=== PATIENT | female | born 1995 | race Caucasian/White ===

== ENCOUNTER → 2016-07-06 | Outpatient (REF) | payer BC, MEDICAID ==
[~2016-07-06] MED LIST: AC325T PO; CLIN-78 PO; CLIN-79 PO; FERR325T36 PO; NAPR250T34 PO; NORE0.354 PO; ONDA-50 PO; ONDN4T PO; OXYC1TAB87 PO; PREN1TAB79 PO
== END ==
LOC: LAB 16:24
PROVIDERS: ATTEND Obstetrics & Gynecology
DX: Z33.1 Pregnant state, incidental (principal)
CPT/HCPCS: 87653

== ENCOUNTER 2016-07-21 03:26 | Inpatient (IN) | payer BC, MEDICAID ==
[2016-07-21] VITALS (22 sets, daily range): BP systolic 101–139; BP diastolic 52–73
[~2016-07-21] VITALS: Ht 162.6 cm; Wt 116.0 kg
[2016-07-21] MEDS ORDERED: CALCIUM CARBONATE CHEWABLE 300 MG (TUMS) TABLET PO PRN ×2 (05:45→06:00)
[2016-07-21] MEDS ORDERED: SODIUM CHLORIDE FLUSH 10 ML SYR IV PRN ×2 (05:45→06:00)
[2016-07-21] MEDS ORDERED: SODIUM CHLORIDE FLUSH 3 ML SYR IV PRN ×2 (05:45→06:00)
--- OUTSIDE RECORDS SUMMARY | 2016-07-21 05:54 | XMS REPORT | Continuity of Care Document ---
Author Author [facility] Address Unknown Phone Unavailable Care Team Providers Care Survey Questionnaire Designer Name Role Phone GIRMA FARIAS MD PCP [phone] Insurance Providers Payer Name Policy Number Subscriber Name Relationship [facility] [id number] Gregory Larios Jr 19 Father [facility] [id number] Ronak Brown 18 Self / Same As Patient Advance Directives Directive Response Recorded Date/Time Advanced Directives No 04/28/15 10:42pm Chief Complaint and Reason for Visit Chief Complaint VAGINAL DELIVERY Reason for Visit Bronchitis Elective induction of labor planned Non- nausea and vomiting Obstetric vaginal laceration, delivered, current hospitalization hemorrhage, delivered, current hospitalization Vaginal delivery Problems Active Problems Medical Problem Onset Date Status 39 weeks gestation of Unknown Acute Anemia due to acute blood loss Unknown Acute Bronchitis Unknown Acute Elective induction of labor planned Unknown Acute Non- nausea and vomiting Unknown Acute Obstetric vaginal laceration, delivered, current hospitalization Unknown Acute hemorrhage, delivered, current hospitalization Unknown Acute Vaginal delivery Unknown Acute Medications Current Home Medications Medication Dose Units Route Directions Days/Qty Instructions Start Date Naproxen (Naprosyn) 250 Mg 440 Mg ORAL Twice A Day With Meals as needed for Pain/Cramping 30 08/11/15 Oxycodone Hcl/Acetaminophen 1 Tab 1 Tab ORAL Every 6 Hours as needed for Pain/Cramping 20 08/11/15 Ferrous Sulfate 325 Mg 325 Mg ORAL Daily 100 08/11/15 Norethindrone 0.35 Mg 0.35 Mg ORAL Daily 1 08/11/15 Past Home Medications Medication Directions Ordered Status Ondansetron Hcl 4 Mg Tablet, 4 Mg Oral Prn as needed for Nausea 04/28/15 Discontinued Social History Query Response Start Date Stop Date Smoking Status Never smoker Hospital Discharge Instructions No hospital discharge instructions. Plan of Care Discharge Date 08/11/15 1:00pm Disposition 01 HOME OR SELF-CARE Instructions/Education Provided Breast Care for the Breast Feeding Mother (DC) Vaginal Delivery (GEN) Prescriptions See Medication Section Referrals GIRMA FARIAS MD ([facility]) - Address: [address] [place] [address] [id number] GIRMA FARIAS MD ([facility]) - Within 6 weeks Address: [address] [place] [address] Functional Status Query Response Date Recorded Activity Up ad rashi August 11, 2015 8:15am Assistance Required Independent August 11, 2015 8:15am Allergies, Adverse Reactions, Alerts No known allergies. Immunizations Name Given Type Status Tdap 08/10/15 Administered Completed Vital Signs Acute Vital Signs Vital Response Date/Time Temperature (Fahrenheit) 98.4 08/11/2015 9:17am Pulse 98 bpm 08/11/2015 9:17am Respirations 18 08/11/2015 9:17am Height 5 ft 4 in Weight 279 lb Body Mass Index 48.0 kg/m^2 Results Laboratory Results Test Name Result Units Flags Reference Collection Date/Time Result Date/ Time Comments White Blood Count 13.79 10^3uL H 4.0-11.0 08/10/2015 5:45am 08/10/2015 7 :09am Red Blood Count 2.52 10^6uL L 4.00-5.00 08/10/2015 5:45am 08/10/2015 7: 09am Hemoglobin 7.8 g/dL L 12.0-15.5 08/10/2015 5:45am 08/10/2015 7:09am RBC MORPHOLOGY IS NORMAL BY REVIEW OF THE SLIDE. Hematocrit 23.20 % L 35.00-45.00 08/10/2015 5:45am 08/10/2015 7:09am Mean Corpuscular Volume 92 FL 80-100 08/10/2015 5:45am 08/10/2015 7: 09am Mean Corpuscular Hemoglobin 30.9 PG 26.0-34.0 08/10/2015 5:45am 2015 7:09am Mean Corpuscular Hemoglobin Concent 33.6 g/dL 31.0-37.0 08/10/2015 5: 45am 08/10/2015 7:09am Red Cell Distribution Width 12.8 % 11.8-15.6 08/10/2015 5:45am 2015 7:09am Platelet Count 207 10^3uL 150-450 08/10/2015 5:45am 08/10/2015 7:09am Mean Platelet Volume 10.3 FL H 6.0-9.5 08/10/2015 5:45am 08/10/2015 7: 09am Procedures No known history of procedures. Encounters Encounter Location Arrival/Admit Date Discharge/Depart Date Attending Provider Discharged Inpatient [facility] 08/08/15 5:44am 08/11/15 1:00pm GIRMA FARIAS MD Recent Diagnosis Bronchitis Elective induction of labor planned Non- nausea and vomiting Obstetric vaginal laceration, delivered, current hospitalization hemorrhage, delivered, current hospitalization Vaginal delivery
[2016-07-21 06:12] LABS: MEAN CORPUSCULAR HGB CONC 33.3 g/dL (31.0-37.0); MEAN PLATELET VOLUME 10.6 FL (6.0-9.5); WHITE BLOOD COUNT 18.91 10^3uL (4.0-11.0)
[2016-07-21] MEDS ORDERED: ROPIVACAINE 1% 10 MG/ML (NAROPIN) 20 ML AMPUL ONE ×2 (06:15→06:35)
[2016-07-21] MEDS ORDERED: ONDANSETRON 2 MG/ML (Z0FRAN) 2 ML VIAL IV PRN (07:40)
[2016-07-21 08:15] LABS: BILIRUBIN,URINE 1+ (Negative); CLARITY,URINE Clear; COLOR,URINE Yellow; GLUCOSE, URINE (UA) Negative (Negative); LEUKOCYTE ESTERASE ,URINE Negative (Negative); PH,URINE 6.5 (5.0 - 8.0); UROBILINOGEN,URINE 0.2 mg/dL (0.2-1.0)
--- NOTE | 2016-07-21 09:26 | History and Physical (E) ---
History & Physical (OB) Subjective: CC:Contractions HPI:20 y/o now 38+5 [facility] admitted for term labor dilated 5cm. GBS-, reports normal FM, no LOF/VB. PNC:Transfer of care from Dr. Hernández. Dated by first trimester ultrasound. No complications. Rubella non-immune. OB Hx: x1 at term without complication PMHx:none PSHx:none Allergies: Coded Allergies: No Known Allergies (Verified Allergy, Unknown, 02/03/16) Home Medications: Reported Medications Vits W-Ca,Fe,Fa(<1MG) ( Vitamins)1 Each Tablet1 Each PO DAILY 01/28/16 Discontinued Reported Medications Ondansetron HCl 4 Mg Tablet4 Mg PO Q6H PRN NAUSEA 09/15/15 Discontinued Scripts Clindamycin HCl 300 Mg [id number] Mg PO TID Infection #17 CAP Ref 0 Prov:IAN HO MD 01/30/16 Acetaminophen 325 Mg [id number] Mg PO Q6H PRN PAIN #0 TAB Ref 0 Prov:IAN HO MD 01/30/16 Objective: Vital Signs Date Time Temp Pulse Resp B/P Pulse Ox O2 Delivery O2 Flow Rate FiO2 07/21/16 08:00 07/21/16 07:30 100 16 Laboratory Results Past 24 Hrs 07/21/16 04:02: Membranes Rupture (PAMG-1) Negative 07/21/16 06:05: Hematocrit 38.40, Hemoglobin 12.8, Mean Corpuscular Hemoglobin 28.0, Mean Corpuscular Hemoglobin Concent 33.3, Mean Corpuscular Volume 84, Mean Platelet Volume 10.6, Platelet Count 318, Red Blood Count 4.57, Red Cell Distribution Width 14.5, White Blood Count 18.91 07/21/16 06:55: Urine Bilirubin 1+, Urine Blood Negative, Urine Clarity Clear, Urine Collection Type Catheter, Urine Color Yellow, Urine Glucose (UA) Negative, Urine Ketones Trace, Urine Leukocyte Esterase Negative, Urine Nitrite Negative, Urine Protein Negative, Urine Specific [place] 1.020, Urine Urobilinogen 0.2, Urine pH 6.5 General: Alert and oriented, NAD Chest: CTA Abdomen: Gravid Cardiovasular: RRR, No murmur Extremities: No edema FHT's:146, reactive, reassuring Cx:5cm [place]:q 3-5 minutes Screenings: Blood type: O Positive, Rubella Non-Immune, RPR non-reactive, HBV Negative, HIV Negative , GBS Negative. Problems/Plans: (1) Rubella non-immune status, antepartum (2) with 38 completed weeks gestation (3) Uterine contractions Admit for term labor. GBS-. Epidural in place with good relief. Anticipate . Additional Copies to: End of Report . ANGEL CRAIN MD July 21, 2016 09:26
[2016-07-21] MEDS ORDERED: OXYTOCIN INJ 20 UNIT in NS 1000ml 1,000 ML IV PRN (13:21)
[2016-07-21] MEDS ORDERED: OXYTOCIN 10 UNIT/ML (PITOCIN) 1 ML VIAL ONE (13:23)
--- NOTE | 2016-07-21 14:44 | Vaginal Delivery Summary (E) ---
Vaginal Delivery Summary At 03:30 on 07/21/16 this 20 year old G 2 now P2 presented to the Labor and Delivery Unit at 38 weeks gestation. The patient presented for care with Dr. Hernández in the first trimester and ultrasound at that time confirmed dates. This complications: None Maternal labs: Blood type: O Positive, Hgb 11.8, Rubella Non-Immune, RPR non- reactive, HBV Negative, HIV Negative , GBS Negative. Tdap booster received on 2016. She presented for Term labor . At presentation, she was 5 cm dilated. On at 1300, AROM was performed by Dr. Crain with clear fluid returned. Epidural was placed at 0500 by Javier Steen, with good pain relief. of Vertex, viable vigorous baby female without complications. Intact placenta delivered over intact perineum. No lacerations. EBL 300cc. Small amount of bimanual massage with pitocin due to history of bleeding, but bleeding and tone was normal. ANGEL CRAIN MD July 21, 2016 14:44
[2016-07-21] MEDS ORDERED: HYDROcodone/APAP 5 MG/325 MG (NORCO) TAB PO PRN (14:45)
[2016-07-21] MEDS ORDERED: LANOLIN OINTMENT 28 GM TUBE TOP PRN (14:45)
[2016-07-21] MEDS: IBUPROFEN 600 MG (MOTRIN) TAB PO PRN (16:30)
--- NOTE | 2016-07-21 17:23 | NUR ---
1645 - Pt had 300 mL blood loss from delivery per Dr. Barr. Pt had 174 mL blood loss during two hour recovery.
[2016-07-21] MEDS ORDERED: DOCUSATE SODIUM 100 MG (COLACE) CAP PO SCH (21:00)
[2016-07-22 06:58] LABS: MEAN CORPUSCULAR HEMOGLOBIN 27.6 PG (26.0-34.0); MEAN CORPUSCULAR HGB CONC 32.3 g/dL (31.0-37.0); MEAN PLATELET VOLUME 10.4 FL (6.0-9.5); WHITE BLOOD COUNT 15.19 10^3uL (4.0-11.0)
[2016-07-22 07:45] VITALS: BP 118/67
[2016-07-22] MEDS: IBUPROFEN 600 MG (MOTRIN) TAB PO PRN (08:42)
[2016-07-22] MEDS ORDERED: HYDR-3702 PO (09:10)
--- NOTE | 2016-07-22 09:27 | Discharge Summary (E) ---
OB Discharge Summary Admit Date/Time July 21, 2016 at 05:30 Discharge Date/Time 07/22/16 Admitting Provider Angel Crain MD Primary Care Provider Bonnie Hernández MD Attending Provider Angel Crain MD Consulting Provider Procedures without complication on 07/21/16 History and Present Illness See History and Physical for complete details. Hospital Course and Treatment Admitted in term labor, epidural placed, AROM, progressed to normal vaginal delivery without complication. Hgb stable >10. discharged PPD#1, F/U [address] Hernández. Discharge Physicial Exam General Alert and oriented, NAD Abdomen Soft, non-distended, fundus firm Extremities No edema Cardiovascular: RRR, No murmur Laboratory Results Past 24 Hrs 07/22/16 06:30: Hematocrit 33.10, Hemoglobin 10.7, Mean Corpuscular Hemoglobin 27.6, Mean Corpuscular Hemoglobin Concent 32.3, Mean Corpuscular Volume 86, Mean Platelet Volume 10.4, Platelet Count 261, Red Blood Count 3.87, Red Cell Distribution Width 14.5, White Blood Count 15.19 Discharge Disposition Home Instructions Nothing PV 6weeks, no lifting >20 lbs for 2 weeks. Call with severe bleeding, fever, pain. Diet regular Discharge Medications New Medications: Hydrocodone/Acetaminophen (Shafer 5mg/325mg) 1 Each Tablet 1-2 TAB PO Q6H PRN PAIN #30 Ref 0 TAB Continued Medications: Vits W-Ca,Fe,Fa(<1MG) ( Vitamins) 1 Each Tablet 1 EACH PO DAILY TAB Follow up Comment [address] Hernández Discharge Diagnosis Problems/Plans: (1) Rubella non-immune status, antepartum (2) with 38 completed weeks gestation (3) Uterine contractions Comment Doing great PPD#1, discharge to home, instructions reviewed. Copies to: End of Report . ANGEL CRAIN MD July 22, 2016 09:26
[2016-07-22] MEDS ORDERED: M-M-R II (MEASLES,MUMPS,RUBELLA) VACCINE SC SCH (10:00)
--- NOTE | 2016-07-22 16:30 | NUR ---
Pt refused MMR vaccination at this time. [facility] if she wants it.
--- NOTE | 2016-07-22 16:45 | NUR ---
Dismissal instructions gone over and pt verbalizes confidence in self and baby care. Dismissed ambulatory with and baby in car seat in husbands arms.
== END 2016-07-22 17:05 | disposition home or self-care (01) | DRG 774 ==
LOC: EUOP 03:26 → OB 03:26 → EUOP 05:30 → OB 07-22 16:23
PROVIDERS: ADMIT Obstetrics & Gynecology; ATTEND Obstetrics & Gynecology
PROC: 10E0XZZ Delivery of Products of Conception, External Approach (ICD-10-PCS; principal; 2016-07-21)
DX: O99.834 Other infection carrier state complicating childbirth (principal); Z22.8 Carrier of other infectious diseases; Z3A.38 38 weeks gestation of pregnancy; Z37.0 Single live birth
CPT/HCPCS: 36415; 81003; 84112; 85027; 86850; 86900; 86901; 99203